=== PATIENT | female | born 1950 | race Caucasian/White ===

== ENCOUNTER 2018-04-21 13:19 | Emergency (ER) | payer MEDICARE ==
[~2018-04-21] VITALS: Ht 170.2 cm; Wt 83.9 kg
--- NOTE | 2018-04-21 13:45 | NUR ---
DR HANKINS AT THE BEDSIDE FOR MSE.
[2018-04-21] MEDS ORDERED: PANT40TA4 PO (13:53)
[2018-04-21] MEDS ORDERED: LISI10TA5 PO (13:53)
[2018-04-21] MEDS ORDERED: HYDR-4077 PO (13:53)
[2018-04-21] MEDS ORDERED: ISOS30TA6 PO (13:53)
[2018-04-21] MEDS ORDERED: ATOR40TA PO (13:53)
[2018-04-21] MEDS ORDERED: AMLO5TAB9 PO (13:53)
[2018-04-21] MEDS ORDERED: LEVO137T2 PO (13:53)
[2018-04-21] MEDS ORDERED: ASPI81TA31 PO (13:53)
[2018-04-21] MEDS ORDERED: CARV6.252 PO (13:53)
[2018-04-21] MEDS ORDERED: CITA20TA16 PO (13:53)
[2018-04-21] MEDS ORDERED: ALBUTEROL SULFATE 2.5 MG/3 ML NEBU ONE (13:57)
[2018-04-21] MEDS ORDERED: ALBUTEROL SULFATE 2.5 MG/3 ML NEBU NEB ONE (14:00)
[2018-04-21 14:01] LABS: BASOPHILS # (AUTO) 0.1 K/uL (0.0-8.0); BASOPHILS % (AUTO) 0.8 % (0.0-2.0); EOSINOPHILS # (AUTO) 0.1 K/uL (0.0-0.7); EOSINOPHILS % (AUTO) 1.4 % (0.0-7.0); HEMATOCRIT 35.2 % (31.2-41.9); HEMOGLOBIN 11.8 g/dL (10.9-14.3); LYMPHOCYTES # (AUTO) 1.1 K/uL (20.0-40.0); LYMPHOCYTES % (AUTO) 14.6 % (20.5-51.5); MEAN CORPUSCULAR HGB CONC 34 g/dL (32.3-35.6); MEAN CORPUSCULAR VOLUME 95.3 fL (75.5-95.3); MONOCYTES # (AUTO) 0.7 K/uL (2.0-10.0); MONOCYTES % (AUTO) 9.1 % (0.0-11.0); NEUTROPHILS # (AUTO) 5.8 K/uL (1.8-8.9); NEUTROPHILS % (AUTO) 74.1 % (38.5-71.5); PLATELET COUNT (AUTO) 223 K/uL (179-408); WHITE BLOOD COUNT (AUTO) 7.8 K/uL (3.8-11.8)
[2018-04-21 14:11] LABS: CREATININE 1.4 mg/dL (0.6-1.3); POTASSIUM 4.7 mmol/L (3.5-5.1)
[2018-04-21 14:28] LABS: BILIRUBIN,DIRECT 0.1 mg/dL (0.0-0.2); BILIRUBIN,TOTAL 0.5 mg/dL (0.2-1.0); TOTAL PROTEIN, SERUM 6.7 g/dL (6.4-8.2)
--- NOTE | 2018-04-21 16:24 | NUR ---
Patient is resting comfortably in bed with eyes closed, NAD noted.
--- NOTE | 2018-04-21 16:55 | NUR ---
GYPSUM CALCINER AT THE BEDSIDE.
[2018-04-21] MEDS ORDERED: AZITHROMYCIN 250 MG TABLET PO ONE (18:00)
[2018-04-21] MEDS ORDERED: BENZONATATE 100 MG CAPSULE PO ONE (18:00)
[2018-04-21] MEDS ORDERED: CEFTRIAXONE 1 G VIAL IM ONE (18:00)
[2018-04-21] MEDS ORDERED: BENZONATATE 100 MG CAPSULE ONE (18:05)
[2018-04-21] MEDS ORDERED: AZITHROMYCIN 250 MG TABLET ONE (18:05)
[2018-04-21] MEDS ORDERED: LIDOCAINE HCL 1% 20 ML VIAL ONE (18:05)
[2018-04-21] MEDS ORDERED: CEFTRIAXONE 1 G VIAL ONE (18:05)
[2018-04-21 18:15] VITALS: BP 139/76
--- NOTE | 2018-04-21 18:16 | NUR ---
Patient discharged to home in stable conditon. Written and verbal after care instructions given. Patient verbalizes understanding of instructions.
== END 2018-04-21 18:17 | disposition home or self-care (01) ==
LOC: ER 13:19
DX: J20.9 Acute bronchitis, unspecified (principal); I25.10 Atherosclerotic heart disease of native coronary artery without angina pectoris; K21.9 Gastro-esophageal reflux disease without esophagitis; E78.5 Hyperlipidemia, unspecified; E03.9 Hypothyroidism, unspecified; Z79.82 Long term (current) use of aspirin; Z79.899 Other long term (current) drug therapy
CPT/HCPCS: 36415; 71045; 80048; 80076; 83880; 84484; 85025; 93005; 93307; 94640; 96372; 99284; J0696; J3490; 70030-TC; A4663; Q0144

== ENCOUNTER 2022-06-28 13:30 | Inpatient (IN) | payer MEDICARE ==
[~2022-06-28] VITALS: Ht 170.2 cm; Wt 69.9 kg
[~2022-06-28 13:30] MED LIST: AMLO-212 PO; ASPI81TA31 PO; ATOR40TA PO; CARV6.252 PO; CITA20TA16 PO; HYDR-4077 PO; ISOS30TA86 PO; LEVO137T2 PO; LISI10TA29 PO; PANT40TA49 PO
--- NOTE | 2022-06-28 14:04 | NUR ---
PT IS IN ROOM #2A. DR SPENCE EVALUATED THE PT.
[2022-06-28 14:06] LABS: HEMATOCRIT 32.7 % (31.2-41.9); MEAN CORPUSCULAR HEMOGLOBIN 34.9 uug (24.7-32.8); MEAN CORPUSCULAR VOLUME 104.4 fL (75.5-95.3); PLATELET COUNT (AUTO) 216 K/uL (179-408)
[2022-06-28] MEDS ORDERED: NITR0.4T48 SL (14:07)
[2022-06-28] MEDS ORDERED: NEPH PO (14:07)
[2022-06-28] MEDS ORDERED: DILT-121 PO (14:07)
[2022-06-28] MEDS ORDERED: PULMOCORT NEB (14:07)
[2022-06-28] MEDS ORDERED: MELA5TAB20 PO (14:07)
[2022-06-28] MEDS ORDERED: APIX5TAB4 PO (14:07)
[2022-06-28] MEDS ORDERED: ALPR0.255 PO (14:07)
[2022-06-28] MEDS ORDERED: POLY17PO52 PO (14:07)
[2022-06-28] MEDS ORDERED: HYDR-4077 PO (14:07)
[2022-06-28 14:19] LABS: CARBON DIOXIDE 33 mmol/L (21-32); CHLORIDE 96 mmol/L (98-107); CREATININE 4.2 mg/dL (0.6-1.3); GLUCOSE 118 mg/dL (74-106); POTASSIUM 4.3 mmol/L (3.5-5.1); UREA NITROGEN, BLOOD 46 mg/dL (7-18)
[2022-06-28 14:32] LABS: ALANINE AMINOTRANSFERASE 29 U/L (14-59); ALKALINE PHOSPHATASE 76 U/L (50-136); ASPARTATE AMINOTRANSFERASE 14 U/L (15-37); BILIRUBIN,DIRECT 0.1 mg/dL (0.0-0.2); BILIRUBIN,TOTAL 0.4 mg/dL (0.2-1.0); TOTAL PROTEIN, SERUM 6.4 g/dL (6.4-8.2)
[2022-06-28] MEDS ORDERED: ASPIRIN 300 MG RECTAL SUPP RC ONE (15:15)
[2022-06-28] MEDS ORDERED: ALBUTEROL SULFATE 2.5 MG/3 ML NEBU NEB ONE (15:15)
[2022-06-28] MEDS ORDERED: IPRATROPIUM BROMIDE 0.5 MG/2.5 ML NEBU NEB ONE (15:15)
[2022-06-28] MEDS ORDERED: MIRALAX 17 GM POWD.PACK PO PRN (16:15)
[2022-06-28] MEDS ORDERED: REMEDY ESSENTIAL ZINC PASTE 113 GM TP PRN (16:30)
[2022-06-28] MEDS ORDERED: ONDANSETRON 4 MG/2 ML VIAL IV PRN (16:30)
[2022-06-28] MEDS ORDERED: ACETAMINOPHEN 325 MG TABLET PO PRN (16:30)
[2022-06-28] MEDS ORDERED: MAGNESIUM HYDROXIDE 30 ML LIQUID UDC PO PRN (16:30)
[2022-06-28] MEDS ORDERED: ISOSORBIDE MONONITRATE 30 MG TAB.SR.24H PO SCH (17:00)
--- NOTE | 2022-06-28 19:05 | NUR ---
REPORT WAS GIVEN TO CCU RN.
[2022-06-28 20:00] VITALS: BP 120/79
[2022-06-28 21:00] VITALS: BP 84/42
[2022-06-28] MEDS: APIXABAN 5 MG TABLET PO SCH (21:00)
[2022-06-28 22:00] VITALS: BP 100/40
[2022-06-28 23:00] VITALS: BP 77/48
[2022-06-28 23:30] VITALS: BP 107/42
[2022-06-29] VITALS (24 sets, daily range): BP systolic 92–150; BP diastolic 41–64
[2022-06-29 05:05] LABS: HEMATOCRIT 25.7 % (31.2-41.9); MEAN CORPUSCULAR HEMOGLOBIN 35.1 uug (24.7-32.8); MEAN CORPUSCULAR VOLUME 102.1 fL (75.5-95.3); PLATELET COUNT (AUTO) 189 K/uL (179-408)
[2022-06-29 05:33] LABS: CARBON DIOXIDE 34 mmol/L (21-32); CHLORIDE 103 mmol/L (98-107); CREATININE 2.4 mg/dL (0.6-1.3); GLUCOSE 88 mg/dL (74-106); MAGNESIUM 2.1 mg/dL (1.8-2.4); POTASSIUM 3.3 mmol/L (3.5-5.1); UREA NITROGEN, BLOOD 21 mg/dL (7-18)
[2022-06-29 05:43] LABS: ABG HCO3 27.9 mmol/L; ABG PCO2 38.7 mmHg (35.0-45.0); ABG PH 7.475 (7.350-7.450); ABG SITE LEFT RADIAL; ABG TOTAL HEMOGLOBIN 9.4 G/dL (12.0-16.0); COHb 0.3 % (0.5-1.5); MetHb 0.3 % (0.0-1.5); O2Hb 96.3 % (94.0-97.0); VENT MODE BIPAP
--- NOTE | 2022-06-29 07:30 | NUR ---
report given to haresh sainz
[2022-06-29] MEDS: LEVOTHYROXINE SODIUM 150 MCG TABLET PO SCH (08:42)
[2022-06-29] MEDS: ASPIRIN 81 MG TAB.CHEW PO SCH (08:57)
[2022-06-29] MEDS: APIXABAN 5 MG TABLET PO SCH (08:58)
[2022-06-29] MEDS: ATORVASTATIN 40 MG TABLET PO SCH (08:59)
[2022-06-29] MEDS ORDERED: CITALOPRAM 20 MG TABLET PO SCH (09:00)
[2022-06-29] MEDS ORDERED: NEPH PO SCH (09:00)
[2022-06-29] MEDS: LISINOPRIL 10 MG TABLET PO SCH (09:00)
[2022-06-29] MEDS ORDERED: DILTIAZEM HCL CD 180 MG CAP.SR.24H PO SCH (09:00)
[2022-06-29] MEDS: CARVEDILOL 25 MG TABLET PO SCH ×2 (09:00→17:32)
[2022-06-29] MEDS: AMLODIPINE 5 MG TABLET PO SCH (09:00)
[2022-06-29] MEDS: PANTOPRAZOLE SODIUM 40 MG TABLET.DR PO SCH (09:04)
[2022-06-29] MEDS ORDERED: ATOR80TA PO (09:26)
[2022-06-29] MEDS ORDERED: CARV25TA2 PO (09:27)
[2022-06-29] MEDS ORDERED: LEVO150T8 PO (09:39)
[2022-06-29] MEDS ORDERED: BUDE0.5A4 IH (09:39)
[2022-06-29] MEDS ORDERED: FOLI0.8T2 GT (09:39)
--- NOTE | 2022-06-29 10:37 | NUR ---
WOUND CARE CONSULT: PT PRESENTS WITH SACRAL DEEP TISSUE INJURY, PRESENT ON ADMISSION. RECOMMENDATIONS MADE FOR SKIN PROTECTION. DISCUSSED WITH NURSING STAFF. IN AGREEMENT WITH PLAN OF CARE. Addendum: 06/29/22 at 1038 by SHONNA JIN RN Amended: Links added.
--- NOTE | 2022-06-29 11:30 | NUR ---
Ame Iasbel saw the patient and I updated her about the patient. I also informed her about the daughter's wish to be called with updates and gave her the phone number. She said that she would call Adelaida "after lunch".
[2022-06-29] MEDS ORDERED: POTASSIUM CHLORIDE 10 MEQ TAB.PRT.SR PO ONE (12:00)
[2022-06-29 12:06] LABS: HEPATITIS B SURFACE AG Negative (Negative)
[2022-06-29] MEDS ORDERED: CARVEDILOL 25 MG TABLET PO SCH (17:00)
[2022-06-29] MEDS: BUDESONIDE 0.5 MG/2 ML NEBU IH SCH (19:19)
[2022-06-29] MEDS: MELATONIN 3 MG TABLET PO SCH (22:16)
[2022-06-30] VITALS (21 sets, daily range): BP systolic 114–165; BP diastolic 44–73
[2022-06-30 05:06] LABS: CARBON DIOXIDE 34 mmol/L (21-32); CHLORIDE 99 mmol/L (98-107); CREATININE 3.6 mg/dL (0.6-1.3); GLUCOSE 85 mg/dL (74-106); POTASSIUM 4.1 mmol/L (3.5-5.1); UREA NITROGEN, BLOOD 35 mg/dL (7-18)
[2022-06-30 05:14] LABS: HEMATOCRIT 24.8 % (31.2-41.9); MEAN CORPUSCULAR HEMOGLOBIN 35.4 uug (24.7-32.8); MEAN CORPUSCULAR VOLUME 104.1 fL (75.5-95.3); PLATELET COUNT (AUTO) 176 K/uL (179-408)
[2022-06-30] MEDS: LEVOTHYROXINE SODIUM 150 MCG TABLET PO SCH (06:15)
[2022-06-30 06:18] LABS: ABG BASE EXCESS 6.3 mmol/L; ABG HCO3 31.7 mmol/L; ABG PH 7.412 (7.350-7.450); ABG PO2 98.9 mmHg (75.0-100.0); ABG SITE RIGHT BRACHIAL; COHb 0.5 % (0.5-1.5); MetHb 0.3 % (0.0-1.5); O2Hb 96.1 % (94.0-97.0); VENT MODE Nasal Cannula
[2022-06-30] MEDS: BUDESONIDE 0.5 MG/2 ML NEBU IH SCH ×2 (06:34→21:05)
--- NOTE | 2022-06-30 07:30 | NUR ---
Dr Sharpe came and saw the patient today
[2022-06-30] MEDS: PANTOPRAZOLE SODIUM 40 MG TABLET.DR PO SCH (08:21)
[2022-06-30] MEDS: CARVEDILOL 25 MG TABLET PO SCH ×2 (08:21→17:36)
[2022-06-30] MEDS: AMLODIPINE 5 MG TABLET PO SCH (08:21)
[2022-06-30] MEDS: FOLIC ACID/VITAMIN B COMP W-C TABLET GT SCH (08:21)
[2022-06-30] MEDS: ASPIRIN 81 MG TAB.CHEW PO SCH (08:22)
[2022-06-30] MEDS: ATORVASTATIN 40 MG TABLET PO SCH (08:22)
[2022-06-30] MEDS: LISINOPRIL 10 MG TABLET PO SCH (08:24)
[2022-06-30] MEDS ORDERED: Medication Not On Formulary EA (Atorvastatin Calcium (Lipitor) 80 MG) PO SCH (09:00)
[2022-06-30] MEDS ORDERED: LEVOTHYROXINE SODIUM 150 MCG TABLET PO SCH (09:00)
--- NOTE | 2022-06-30 09:00 | NUR ---
Dr Willams saw the patient and was update about her status and ABG results, and CT Chest results that he had previously ordered..
[2022-06-30] MEDS: APIXABAN 5 MG TABLET PO SCH ×2 (09:14→20:49)
--- NOTE | 2022-06-30 10:00 | NUR ---
Dr Mcdowell came and saw the patient and I updated him about the status of the patient and he ordered HD for the patient today.
--- NOTE | 2022-06-30 11:00 | NUR ---
Spoke with patients grand daughter Adelaida Cline and she insisted that we discharge the patient before the weekend. I informed her that I would relay her request to the doctors and that it would be up to the doctors to determine if it would be possible to DC the patent.
--- NOTE | 2022-06-30 12:00 | NUR ---
I spoke with Ame Isabel about the grand daughter's request for discharge and she said no that it may happen on Sunday if she remains stable. Patient has been started on HD for the past 15 minutes.
[2022-06-30] MEDS: MELATONIN 3 MG TABLET PO SCH (20:48)
[2022-06-30] MEDS: ALPRAZOLAM 0.25 MG TABLET PO PRN (22:06)
[2022-07-01] VITALS (7 sets, daily range): BP systolic 122–153; BP diastolic 45–67
[2022-07-01 04:34] LABS: HEMATOCRIT 25.1 % (31.2-41.9); MEAN CORPUSCULAR HEMOGLOBIN 35.3 uug (24.7-32.8); MEAN CORPUSCULAR VOLUME 102.8 fL (75.5-95.3); PLATELET COUNT (AUTO) 162 K/uL (179-408)
[2022-07-01 04:42] LABS: CARBON DIOXIDE 33 mmol/L (21-32); CHLORIDE 98 mmol/L (98-107); CREATININE 2.2 mg/dL (0.6-1.3); GLUCOSE 81 mg/dL (74-106); POTASSIUM 4.5 mmol/L (3.5-5.1); UREA NITROGEN, BLOOD 14 mg/dL (7-18)
[2022-07-01 04:46] LABS: MAGNESIUM 2.3 mg/dL (1.8-2.4); PHOSPHOROUS 2.7 mg/dL (2.5-4.9)
[2022-07-01] MEDS: BUDESONIDE 0.5 MG/2 ML NEBU IH SCH ×2 (06:10→20:17)
[2022-07-01 06:18] LABS: ABG BASE EXCESS 3.2 mmol/L; ABG HCO3 28.1 mmol/L; ABG PCO2 44.8 mmHg (35.0-45.0); ABG PH 7.416 (7.350-7.450); ABG PO2 86.4 mmHg (75.0-100.0); ABG SITE RIGHT RADIAL; ABG TOTAL HEMOGLOBIN 8.8 G/dL (12.0-16.0); COHb 0.6 % (0.5-1.5); MetHb 0.3 % (0.0-1.5); VENT MODE Nasal Cannula
[2022-07-01] MEDS: LEVOTHYROXINE SODIUM 150 MCG TABLET PO SCH (06:21)
--- NOTE | 2022-07-01 07:00 | NUR ---
REPORT GIVEN TO LIZ SRAMIENTO
--- NOTE | 2022-07-01 07:20 | NUR ---
Report received from cnc machinist 2nd shift. 3rd floor called and bed is available and receiving nurse will be Theo HILL. Went to 3rd floor to get tele box, brought patient up to the floor and report given at bedside to Theo HILL.
--- NOTE | 2022-07-01 07:30 | NUR ---
RECEIVED PATIENT BY BED 71 YEARS OLD FEMALE FROM CCU TO 314 WITH DX OF NSTEMI PATIENT ORIENTED TO ROOM AND FLOOR PROTOCOL PATIENT IS ON ROOM AIR AT 2L/M BY NASAL CANULA WITH NO SHORTNESS OF BREATH SHE HAS A DIALYSIS CATH RIGHT MID CHEST AREA WITH NO DRAINAGE AT THIS TIME LEFT AC WITH HEPLOCK WITH NO S/S OF INFILTERATION ON SITE TELE IS SB/SR MADE COMFORTABLE WILL CONTINUE TO OBSERVE.
[2022-07-01] MEDS: ASPIRIN 81 MG TAB.CHEW PO SCH (09:16)
[2022-07-01] MEDS: ATORVASTATIN 40 MG TABLET PO SCH (09:16)
[2022-07-01] MEDS: FOLIC ACID/VITAMIN B COMP W-C TABLET GT SCH (09:16)
[2022-07-01] MEDS: PANTOPRAZOLE SODIUM 40 MG TABLET.DR PO SCH (09:16)
[2022-07-01] MEDS: LISINOPRIL 10 MG TABLET PO SCH (09:17)
[2022-07-01] MEDS: AMLODIPINE 5 MG TABLET PO SCH (09:17)
[2022-07-01] MEDS: CARVEDILOL 25 MG TABLET PO SCH ×2 (09:17→16:40)
[2022-07-01] MEDS: APIXABAN 5 MG TABLET PO SCH ×2 (09:19→20:18)
--- NOTE | 2022-07-01 13:00 | NUR ---
PATIENT SEEN AND EXAMINED BY RUI LORA NP AND SHE STATED THAT SHE ATTEMPTED TO CALL PATIENTS DAUGHTER TO TALK TO HER REPLAN OF CARE BUT STATED PATIENTS DAUGHTER DID NOT BALLPOINT PENS ASSEMBLER THE CA.. NO NEW ORDERS AT THIS TIME.
--- NOTE | 2022-07-01 17:38 | NUR ---
TURNED AND REPOSITIONED FOR COMFORT HEELS FLOATED ASSISTED WITH MEALS PATIENT IS A FEEDER APPETITE IS GOOD NOT IN DISTRESS AT THIS TIME.
[2022-07-01] MEDS: MELATONIN 3 MG TABLET PO SCH (20:17)
--- NOTE | 2022-07-02 05:30 | NUR ---
END OF SHIFT REPORT PAtient slept all throughout the night; incontinence care done; care rounding q1h; safety maintained; bed alarm on; repositioned for comfort; needs attended
[2022-07-02 05:41] LABS: HEMATOCRIT 26.4 % (31.2-41.9); MEAN CORPUSCULAR HEMOGLOBIN 35.1 uug (24.7-32.8); MEAN CORPUSCULAR VOLUME 103.6 fL (75.5-95.3); PLATELET COUNT (AUTO) 177 K/uL (179-408)
[2022-07-02] MEDS: PANTOPRAZOLE SODIUM 40 MG TABLET.DR PO SCH (05:43)
[2022-07-02] MEDS: LEVOTHYROXINE SODIUM 150 MCG TABLET PO SCH (05:43)
[2022-07-02 05:49] LABS: CARBON DIOXIDE 30 mmol/L (21-32); CHLORIDE 95 mmol/L (98-107); GLUCOSE 85 mg/dL (74-106); POTASSIUM 5.1 mmol/L (3.5-5.1); UREA NITROGEN, BLOOD 26 mg/dL (7-18)
[2022-07-02] MEDS: BUDESONIDE 0.5 MG/2 ML NEBU IH SCH ×2 (06:23→20:54)
[2022-07-02] MEDS: FOLIC ACID/VITAMIN B COMP W-C TABLET GT SCH (08:41)
[2022-07-02] MEDS: ASPIRIN 81 MG TAB.CHEW PO SCH (08:41)
[2022-07-02] MEDS: ATORVASTATIN 40 MG TABLET PO SCH (08:42)
[2022-07-02] MEDS: CARVEDILOL 25 MG TABLET PO SCH ×2 (08:47→16:09)
[2022-07-02] MEDS: LISINOPRIL 10 MG TABLET PO SCH (08:47)
[2022-07-02] MEDS: AMLODIPINE 5 MG TABLET PO SCH (08:47)
[2022-07-02] MEDS: APIXABAN 5 MG TABLET PO SCH ×2 (09:14→20:34)
--- NOTE | 2022-07-02 11:48 | NUR ---
CALL RECEIVED ROM PATIENT STATED NEEDS MORE AIR SHE IS ON O2 AT 1L/M BY NASAL CANULA CHECKED HER SATURATION AND ITS AT 87 PERCENT HER O2 INCREASED TO 2L/M AND RECHECKED AND NOW ITS AT 89 PERCENT INCREASED AGAIN TO 3L/M BY NASAL CANULA AND ITS AT 92-93 PERCENT SPEEDY LORA HERE AT THE BEDSIDE AND STATED THAT PATIENT IS ON O2 AT [place] STATED WILL OBSERVE FUTHER TO SEE IF PATIENT CAN BE SAFELY DISCHARGED TODAY WILL CONTINUE TO OBSERVE.
[2022-07-02 12:00] VITALS: BP 149/58
--- NOTE | 2022-07-02 12:00 | NUR ---
CALLED RESPIRATORY THERAPY TO EVALUATE PATIENT TO ENSURE ADEQUATE BREATHING AND THE RT PLACED PATIENT ON BIPAP SHE HAS PRN ORDER AND IS BETTER FOR HER.
--- NOTE | 2022-07-02 12:13 | NUR ---
RUI HERE AND STATED TO ORDER HAND HELD NEBULIZERS FOR HER AND NOTED.
[2022-07-02] MEDS: ALBUTEROL SULFATE 2.5 MG/3 ML NEBU NEB SCH ×2 (12:20→20:54)
[2022-07-02] MEDS: IPRATROPIUM BROMIDE 0.5 MG/2.5 ML NEBU NEB SCH ×2 (12:20→20:54)
[2022-07-02] MEDS: NEPRO (VANILLA) 237 ML CAN PO SCH (12:45)
--- NOTE | 2022-07-02 14:30 | NUR ---
THE [facility] HERE TO DO CHEST XRAY ORDERED BUT PATIENT REFUSED AT THIS TIME ATTEMPTS TO PERSUADE PATIENT TO HAVE THE XRAY DONE ORDERED BY HER PROVIDER FAILED.WILL NOTIFY RUI LORA.
--- NOTE | 2022-07-02 15:12 | NUR ---
PATIENT IS CURRENTLY USING THE BIPAP STATED SHE FEELS MORE COMFORTABLE WITH THE BIPAP HER SAT IS AT 98 PERCENT WILL CONTINUE TO OBSERVE.
--- NOTE | 2022-07-02 15:31 | NUR ---
CALL RECEIVED FROM PATIENTS GRAND DAUGHTER CARLOS ALBERTO WANTING UPDATE GAVE HER ALL THE DETAILS INCLUDING THAT PATIENT IS CURRENTLY ON BIPAP TO MAINTAIN SATS SHE HAS REFUSED CHEST XRAY ORDERED HHN GIVEN ORDERED CARLOS ALBERTO STATED THAT SHE WANTS RUI LORA TO CALL HER SO I CALL RUI AND LEFT HER A MESSAGE TO REACH OUT TO CARLOS ALBERTO.
[2022-07-02 16:00] VITALS: BP 119/52
--- NOTE | 2022-07-02 17:45 | NUR ---
PATIENT IS REFUSING TO EAT DOES NOT WANT HER BIPAP REMOVED IN OTHER TO FEED HER SO I FINALLY CONVINCED PATIENT TO TEMPORARILY REMOVE THE BIPAP AND EAT AND WE CAN THEN PUT IT BACK SHE AGREED AND THE BIPAP WAS REMOVED AND SHE ONLY ATE 20 PERCENT DRANK HIS JUICE AND IMMEDIATELY WANTS HER BIPAP PUT BACK ON HER.HYDRO PNEUMATIC TESTER CALLED AND THE BIPAP WAS PLACED BACK.
[2022-07-02 20:00] VITALS: BP 122/59
[2022-07-02] MEDS: MELATONIN 3 MG TABLET PO SCH (20:32)
[2022-07-03] VITALS: BP 128/71
[2022-07-03 04:00] VITALS: BP 146/61
[2022-07-03] MEDS: LEVOTHYROXINE SODIUM 150 MCG TABLET PO SCH (06:00)
[2022-07-03 06:53] LABS: MEAN CORPUSCULAR HEMOGLOBIN 35.1 uug (24.7-32.8); MEAN CORPUSCULAR VOLUME 103.2 fL (75.5-95.3); PLATELET COUNT (AUTO) 173 K/uL (179-408)
[2022-07-03 07:01] LABS: CARBON DIOXIDE 31 mmol/L (21-32); CHLORIDE 95 mmol/L (98-107); CREATININE 3.9 mg/dL (0.6-1.3); GLUCOSE 79 mg/dL (74-106); POTASSIUM 5.4 mmol/L (3.5-5.1); UREA NITROGEN, BLOOD 37 mg/dL (7-18)
--- NOTE | 2022-07-03 07:30 | NUR ---
RECEIVED PATIENT IN BED WITH HER BIPAP IN PLACE WITH ADEQUATE SATS ALERT AND ORIENTED BUT FORGETFUL PATIENT CONTINUE TO REFUSE TO REMOVE THE BIPAP WANT TO CONTINUE TO WEAR .ON TELE SHE IS SR CALL LIGHT AND PERSONAL BELONGINGS ARE WITHIN EASY REACH AT THIS TIME WILL CONTINUE TO OBSERVE.
[2022-07-03] MEDS: IPRATROPIUM BROMIDE 0.5 MG/2.5 ML NEBU NEB SCH ×3 (07:42→19:09)
[2022-07-03] MEDS: ALBUTEROL SULFATE 2.5 MG/3 ML NEBU NEB SCH ×3 (07:42→19:09)
[2022-07-03] MEDS: BUDESONIDE 0.5 MG/2 ML NEBU IH SCH ×2 (07:42→19:09)
[2022-07-03] MEDS: PANTOPRAZOLE SODIUM 40 MG TABLET.DR PO SCH (08:44)
[2022-07-03] MEDS: FOLIC ACID/VITAMIN B COMP W-C TABLET GT SCH (08:44)
[2022-07-03] MEDS: ASPIRIN 81 MG TAB.CHEW PO SCH (08:45)
[2022-07-03] MEDS: LISINOPRIL 10 MG TABLET PO SCH (08:45)
[2022-07-03] MEDS: ATORVASTATIN 40 MG TABLET PO SCH (08:45)
[2022-07-03] MEDS: AMLODIPINE 5 MG TABLET PO SCH (08:46)
[2022-07-03] MEDS: CARVEDILOL 25 MG TABLET PO SCH ×2 (08:46→16:52)
[2022-07-03] MEDS: APIXABAN 5 MG TABLET PO SCH ×2 (08:49→21:27)
[2022-07-03] MEDS: NEPRO (VANILLA) 237 ML CAN PO SCH (09:00)
--- NOTE | 2022-07-03 09:17 | NUR ---
PATIENT SEEN AND EXAMINED BY DR PETERSON WITH NEW ORDERS AND NOTED.BIPAP REMOVED BY RT WITH MUCH DIFFICULTY PATIENT IS RESISTING DOES NOT WANT IT REMOVED SHE SAID THAT SHE CANNOT BREATH WITHOUT THE BIPAP ATTEMPTING TO FEED HER AND WILL REEVALUATE
--- NOTE | 2022-07-03 09:30 | NUR ---
DR KELLY HERE AND SEEN PATIENT WITH ORDER FOR DIALYSIS TODAY AND NOTED.
--- NOTE | 2022-07-03 11:22 | NUR ---
PATIENT SEEN BY RUI LORA WITH NEW ORDERS SHE IS STILL COMPLAINING THAT SHE CANNOT BREATH ON THE NASAL CANULA WITH SAT AT 93 PERCENT RESPIRATORY AWARE TO REAPPLY THE BIPAP.ABG AND CXR COMPLETED ORDERED.
[2022-07-03 12:00] VITALS: BP 141/60
--- NOTE | 2022-07-03 13:00 | NUR ---
pt is for psych consult per Maryjo Isabel (hospitalist) Dr Delong informed of the consult
--- NOTE | 2022-07-03 13:22 | NUR ---
PATIENTS DAUGHTER CARLOS ALBERTO HERE AND STATED THAT SHE WANTS HER MOM TO BE DISCHARGED TODAY SHE IS AWARE OF THE DIALYSIS SCHEDULE TODAY AND STATED THAT IF AFTER THE DIALYSIS AND RUI IS NOT DISCHARGING THE PATIENT TODAY THEN SHE WILL SIGN THE AGAINST MEDICAL ADVISE FORM AND TAKE OUT THE PATIENT AWAITING FOR THE DIALYSIS NURSE TO COME FOR THE DIALYSIS ORDERED.
[2022-07-03 14:00] LABS: ABG BASE EXCESS 3.7 mmol/L; ABG HCO3 29.1 mmol/L; ABG PCO2 47.9 mmHg (35.0-45.0); ABG PH 7.401 (7.350-7.450); ABG PO2 93.6 mmHg (75.0-100.0); ABG SITE RIGHT BRACHIAL; ABG TOTAL HEMOGLOBIN 9.6 G/dL (12.0-16.0); COHb 0.3 % (0.5-1.5); MetHb 0.3 % (0.0-1.5); O2Hb 96.2 % (94.0-97.0); VENT MODE Nasal Cannula
--- NOTE | 2022-07-03 15:00 | NUR ---
DR SELBYIAN HERE TO SEE PATIENT WITH NO NEW ORDERS AT THIS TIME.
[2022-07-03 16:00] VITALS: BP 152/60
--- NOTE | 2022-07-03 16:50 | NUR ---
DIALYSIS STATED ORDERED PATIENT IS AWAKE ALERT COOPERATIVE WITH O2 AT 5L/M BY NASAL CANULA WITH NO SOB AT THIS TIME SHE WAS ASKING FOR BIPAP FEW MINUTES AGO BUT I REMINDED HER THAT SHE IS OKAY WITH THE NASAL JUSTIN AT THIS TIME.
--- NOTE | 2022-07-03 18:00 | NUR ---
DIALYSIS CONTINUES IN PROGRESS ORDERED WITH NO ADVERSE REACTIONS REPORTED AT THIS TIME .
[2022-07-03 20:00] VITALS: BP 170/61
[2022-07-03] MEDS: MELATONIN 3 MG TABLET PO SCH (21:25)
[2022-07-03 22:00] VITALS: BP 142/59
[2022-07-04] VITALS: BP 153/92
[2022-07-04 04:00] VITALS: BP 179/72
[2022-07-04 05:20] LABS: ABG BASE EXCESS 6.1 mmol/L; ABG PCO2 47.4 mmHg (35.0-45.0); ABG PH 7.434 (7.350-7.450); ABG PO2 56.8 mmHg (75.0-100.0); ABG SITE RIGHT BRACHIAL; COHb 0.6 % (0.5-1.5); MetHb 0.3 % (0.0-1.5); O2Hb 89.4 % (94.0-97.0); VENT MODE Nasal Cannula
[2022-07-04] MEDS: hydrALAZINE HCL 50 MG TABLET PO PRN (06:00)
[2022-07-04 07:04] LABS: HEMATOCRIT 26.3 % (31.2-41.9); MEAN CORPUSCULAR HEMOGLOBIN 35.3 uug (24.7-32.8); MEAN CORPUSCULAR VOLUME 102.4 fL (75.5-95.3); PLATELET COUNT (AUTO) 192 K/uL (179-408)
--- NOTE | 2022-07-04 07:15 | NUR ---
END OF SHIFT REPORT Pt tolerated HD last night with 2000 ml out; slept well and now on 4L NC; BP this AM sbp 170s and hydralazine given; endorsed to AM RN; continue to monitor; continue plan of care
[2022-07-04 07:32] LABS: CARBON DIOXIDE 32 mmol/L (21-32); CHLORIDE 97 mmol/L (98-107); CREATININE 2.5 mg/dL (0.6-1.3); GLUCOSE 88 mg/dL (74-106); POTASSIUM 4.2 mmol/L (3.5-5.1); UREA NITROGEN, BLOOD 21 mg/dL (7-18)
[2022-07-04] MEDS: LEVOTHYROXINE SODIUM 150 MCG TABLET PO SCH (07:32)
[2022-07-04] MEDS: BUDESONIDE 0.5 MG/2 ML NEBU IH SCH ×2 (08:00→19:39)
[2022-07-04] MEDS: IPRATROPIUM BROMIDE 0.5 MG/2.5 ML NEBU NEB SCH ×3 (08:00→19:39)
[2022-07-04] MEDS: ALBUTEROL SULFATE 2.5 MG/3 ML NEBU NEB SCH ×3 (08:00→19:39)
[2022-07-04] MEDS: ATORVASTATIN 40 MG TABLET PO SCH (08:59)
[2022-07-04] MEDS: NEPRO (VANILLA) 237 ML CAN PO SCH (08:59)
[2022-07-04] MEDS: FOLIC ACID/VITAMIN B COMP W-C TABLET GT SCH (08:59)
[2022-07-04] MEDS: ASPIRIN 81 MG TAB.CHEW PO SCH (09:00)
[2022-07-04] MEDS: PANTOPRAZOLE SODIUM 40 MG TABLET.DR PO SCH (09:00)
[2022-07-04] MEDS: LISINOPRIL 10 MG TABLET PO SCH (09:01)
[2022-07-04] MEDS: CARVEDILOL 25 MG TABLET PO SCH ×2 (09:01→17:44)
[2022-07-04] MEDS: AMLODIPINE 5 MG TABLET PO SCH (09:02)
[2022-07-04] MEDS: APIXABAN 5 MG TABLET PO SCH ×2 (09:05→22:39)
[2022-07-04] MEDS: ALPRAZOLAM 0.25 MG TABLET PO PRN (10:01)
--- NOTE | 2022-07-04 10:01 | NUR ---
PATIENT IS VERY ANXIOUS AT THIS TIME STILL ASKING FOR THE BIPAP MACHINE STATED THAT SHE CANNOT BREATH HER SATS IS ADEQUATE WITH THE NASAL CANULA AT 4L/M PATIENT MEDICATED WITH XANAX AT THIS TIME REASSURED AND WILL CONTINUE TO OBSERVE.
[2022-07-04 10:13] LABS: MAGNESIUM 2.5 mg/dL (1.8-2.4); PHOSPHOROUS 3.1 mg/dL (2.5-4.9)
--- NOTE | 2022-07-04 10:19 | NUR ---
PSYCHIATRIST LOS HERE AND SEEN PATIENT TO EVALUATE PATIENTS BEHAVIOR WITH WANTING TO HAVE THE BIPAP ON ALL THE TIME EVEN THOUGH HER BLOOD GASSES HAS BEEN NORMAL AND SHE IS ON O2 AT 4L/M BY NASAL CANNULA WITH SATS AT 93-94 PERCENT
--- NOTE | 2022-07-04 11:49 | NUR ---
NEW ORDER NOTED FOR THORACENTESIS BY DR GLENYS ASH AND SHE ALSO CALLED PATIENTS GRAND DAUGHTER CARLOS ALBERTO AND NOTIFIED HER RE PLAN OF CARE.
[2022-07-04 12:00] VITALS: BP 158/60
--- NOTE | 2022-07-04 13:00 | NUR ---
PATIENT CONTINUES TO REQUEST FOR THE BIPAP STATED UNABLE TO BREATH VERY ANXIOUS AND CALLING OUT FOR HELP O2 SAT AT 91-92 PERCENT RESPIRATORY THERAPIST CALLED AND PATIENT PLACED ON BIPAP SHE IS NOW MORE RELAXED AND RESTING WILL CONTINUE TO OBSERVE.
[2022-07-04 16:00] VITALS: BP 137/46
--- NOTE | 2022-07-04 18:00 | NUR ---
USING BIPAP ON AND OFF MORE ON THAN OFF STARTS TO GET UPSET AND AGITATED ASKING FOR THE BIPAP STATED UNABLE TO BREATH APPLIED REMOVED AND REAPPLIED MANY TIMES WILL CONTINUE TO OBSERVE.
--- NOTE | 2022-07-04 19:40 | NUR ---
received patient in bed hob elevate, patient on Bipap as per requested, seen by RT. patient has no complain of pain, kept clean dry and comfortable. patient cooperative with care, cont to monitor.
[2022-07-04 20:00] VITALS: BP 155/65
[2022-07-04] MEDS: MELATONIN 3 MG TABLET PO SCH (22:33)
[2022-07-05] VITALS (7 sets, daily range): BP systolic 107–168; BP diastolic 51–66
[2022-07-05] MEDS: hydrALAZINE HCL 50 MG TABLET PO PRN (00:57)
[2022-07-05] MEDS: LEVOTHYROXINE SODIUM 150 MCG TABLET PO SCH (06:08)
--- NOTE | 2022-07-05 06:20 | NUR ---
Patient awake no sob no chest pain, right chest perma cath dressing intact, no complain of pain, patient still voids, prefer to continue to have bipap. cont to monitor.
[2022-07-05 06:44] LABS: HEMATOCRIT 26.3 % (31.2-41.9); MEAN CORPUSCULAR HEMOGLOBIN 35.1 uug (24.7-32.8); MEAN CORPUSCULAR VOLUME 103.5 fL (75.5-95.3); PLATELET COUNT (AUTO) 198 K/uL (179-408)
[2022-07-05 07:18] LABS: CARBON DIOXIDE 32 mmol/L (21-32); CHLORIDE 98 mmol/L (98-107); CREATININE 3.1 mg/dL (0.6-1.3); GLUCOSE 84 mg/dL (74-106); POTASSIUM 4.1 mmol/L (3.5-5.1); UREA NITROGEN, BLOOD 26 mg/dL (7-18)
[2022-07-05] MEDS: IPRATROPIUM BROMIDE 0.5 MG/2.5 ML NEBU NEB SCH ×3 (07:42→20:29)
[2022-07-05] MEDS: BUDESONIDE 0.5 MG/2 ML NEBU IH SCH ×2 (07:42→20:29)
[2022-07-05] MEDS: ALBUTEROL SULFATE 2.5 MG/3 ML NEBU NEB SCH ×3 (07:42→20:29)
[2022-07-05 08:25] LABS: MAGNESIUM 2.6 mg/dL (1.8-2.4); PHOSPHOROUS 3.5 mg/dL (2.5-4.9)
[2022-07-05] MEDS: ASPIRIN 81 MG TAB.CHEW PO SCH (09:08)
[2022-07-05] MEDS: CARVEDILOL 25 MG TABLET PO SCH ×2 (09:08→17:00)
[2022-07-05] MEDS: FOLIC ACID/VITAMIN B COMP W-C TABLET GT SCH (09:08)
[2022-07-05] MEDS: PANTOPRAZOLE SODIUM 40 MG TABLET.DR PO SCH (09:08)
[2022-07-05] MEDS: LISINOPRIL 10 MG TABLET PO SCH (09:08)
[2022-07-05] MEDS: AMLODIPINE 5 MG TABLET PO SCH (09:08)
[2022-07-05] MEDS: ATORVASTATIN 40 MG TABLET PO SCH (09:08)
[2022-07-05] MEDS: APIXABAN 5 MG TABLET PO SCH ×2 (09:09→20:23)
[2022-07-05] MEDS: NEPRO (VANILLA) 237 ML CAN PO SCH (09:10)
--- NOTE | 2022-07-05 14:20 | NUR ---
Hemodialysis started. pt alert and oriented. no sign of distress. on 3L NC saturating 96-98%.
--- NOTE | 2022-07-05 15:00 | NUR ---
s/p hemodialysis. 2L out. pt tolerated the procedure. no complication noted. made aware.
--- NOTE | 2022-07-05 15:10 | NUR ---
pt c/o SOB. pt requested to be put on BiPap. RT notified. Addendum: 07/05/22 at 1605 by ASHLEY PAINTER RN pt on Bipap again. made aware.
--- NOTE | 2022-07-05 19:30 | NUR ---
Received patient lying in bed. BIPAP in place. In no apparent distress. NSR on tele with HR of 64/min. Perma cath on right upper chest area intact with dressing clean and dry. Needs assessed and attended to. Safety measure initiated and call light within reached.
[2022-07-05] MEDS: MELATONIN 3 MG TABLET PO SCH (20:23)
--- NOTE | 2022-07-05 20:39 | NUR ---
REQUEST OF PATIENT, 20:35- TO TAKE OFF BI/PAP, PT PLACED ON O2 @ 3L/M NC, BI/PAP PRN , BG GRIER RCP Addendum: 07/05/22 at 204 by ATILIO GRIER RT Amended: Links added.
[2022-07-06 00:19] VITALS: BP 127/69
[2022-07-06 04:32] VITALS: BP 121/53
--- NOTE | 2022-07-06 04:56 | NUR ---
Noted patient pulled out IV on left AC. Placed new IV on right FA #[id number].
--- NOTE | 2022-07-06 05:29 | NUR ---
BIPAP used during the night. No complain of pain or SOB. NSR on tele with HR of 66/min. IV site on right FA remains intact and patent. Needs attended to and met. Safety measure initiated and call light within reached.
[2022-07-06] MEDS: LEVOTHYROXINE SODIUM 150 MCG TABLET PO SCH (06:02)
[2022-07-06 06:18] LABS: ABG BASE EXCESS 2.6 mmol/L; ABG HCO3 26.8 mmol/L; ABG PCO2 39.8 mmHg (35.0-45.0); ABG PH 7.446 (7.350-7.450); ABG PO2 77.8 mmHg (75.0-100.0); ABG SITE RIGHT RADIAL; ABG TOTAL HEMOGLOBIN 8.8 G/dL (12.0-16.0); COHb 0.4 % (0.5-1.5); MetHb 0.3 % (0.0-1.5); O2Hb 94.5 % (94.0-97.0); VENT MODE Nasal Cannula
[2022-07-06 07:07] LABS: HEMATOCRIT 25.2 % (31.2-41.9); MEAN CORPUSCULAR VOLUME 103.9 fL (75.5-95.3); PLATELET COUNT (AUTO) 222 K/uL (179-408)
[2022-07-06 07:35] LABS: CARBON DIOXIDE 33 mmol/L (21-32); CHLORIDE 99 mmol/L (98-107); CREATININE 2.7 mg/dL (0.6-1.3); GLUCOSE 100 mg/dL (74-106); MAGNESIUM 2.2 mg/dL (1.8-2.4); PHOSPHOROUS 2.9 mg/dL (2.5-4.9); POTASSIUM 3.6 mmol/L (3.5-5.1); UREA NITROGEN, BLOOD 21 mg/dL (7-18)
[2022-07-06] MEDS: BUDESONIDE 0.5 MG/2 ML NEBU IH SCH (07:45)
[2022-07-06] MEDS: IPRATROPIUM BROMIDE 0.5 MG/2.5 ML NEBU NEB SCH ×2 (07:46→13:40)
[2022-07-06] MEDS: ALBUTEROL SULFATE 2.5 MG/3 ML NEBU NEB SCH ×2 (07:46→13:40)
[2022-07-06] MEDS: ATORVASTATIN 40 MG TABLET PO SCH (08:25)
[2022-07-06] MEDS: ASPIRIN 81 MG TAB.CHEW PO SCH (08:25)
[2022-07-06] MEDS: PANTOPRAZOLE SODIUM 40 MG TABLET.DR PO SCH (08:25)
[2022-07-06] MEDS: APIXABAN 5 MG TABLET PO SCH (08:26)
[2022-07-06] MEDS: FOLIC ACID/VITAMIN B COMP W-C TABLET GT SCH (08:27)
[2022-07-06] MEDS: AMLODIPINE 5 MG TABLET PO SCH (08:36)
[2022-07-06] MEDS: CARVEDILOL 25 MG TABLET PO SCH (08:36)
[2022-07-06] MEDS: NEPRO (VANILLA) 237 ML CAN PO SCH (08:37)
[2022-07-06] MEDS: LISINOPRIL 10 MG TABLET PO SCH (08:37)
[2022-07-06] MEDS ORDERED: AMLO-212 PO (10:02)
[2022-07-06] MEDS ORDERED: LISI10TA29 PO (10:02)
[2022-07-06 11:40] VITALS: BP 111/43
[2022-07-06 15:43] VITALS: BP 93/51
--- NOTE | 2022-07-06 16:31 | NUR ---
Pt. discharged to [facility]. Pt. has been stable through out the shift and upon the discharge. Body check done and picture included in pt. chart. Personal belongig returned to the patient. All necessary document signed and a copy was given to the patient. IV line removed. Called [facility] and report given to Vu.
== END 2022-07-06 16:35 | disposition home health service (06) | DRG 280 ==
LOC: ER 13:30 → TRANSITION 18:57 → CCU 19:30 → MEDSURG3 07-01 07:51 → TELE3 07-01 07:53
PROVIDERS: ADMIT Nurse Practitioner Acute Care; ATTEND Nurse Practitioner Acute Care
PROC: 5A09357 Assistance with Respiratory Ventilation, Less than 24 Consecutive Hours, Continuous Positive Airway Pressure (ICD-10-PCS; principal; 2022-06-28)
PROC: 5A1D70Z Performance of Urinary Filtration, Intermittent, Less than 6 Hours Per Day (ICD-10-PCS; 2022-06-29)
DX: I13.2 Hypertensive heart and chronic kidney disease with heart failure and with stage 5 chronic kidney disease, or end stage renal disease (principal); I21.A1 Myocardial infarction type 2; I50.33 Acute on chronic diastolic (congestive) heart failure; N18.6 End stage renal disease; J96.21 Acute and chronic respiratory failure with hypoxia; J96.22 Acute and chronic respiratory failure with hypercapnia; I69.354 Hemiplegia and hemiparesis following cerebral infarction affecting left non-dominant side; E44.0 Moderate protein-calorie malnutrition; D68.59 Other primary thrombophilia; K21.9 Gastro-esophageal reflux disease without esophagitis; D63.1 Anemia in chronic kidney disease; Z74.01 Bed confinement status; F41.9 Anxiety disorder, unspecified; I48.0 Paroxysmal atrial fibrillation; Z99.81 Dependence on supplemental oxygen; E03.9 Hypothyroidism, unspecified; E78.5 Hyperlipidemia, unspecified; I27.20 Pulmonary hypertension, unspecified; Z79.82 Long term (current) use of aspirin; Z79.899 Other long term (current) drug therapy; Z79.01 Long term (current) use of anticoagulants; Z95.5 Presence of coronary angioplasty implant and graft; Z99.2 Dependence on renal dialysis; I25.10 Atherosclerotic heart disease of native coronary artery without angina pectoris; E88.09 Other disorders of plasma-protein metabolism, not elsewhere classified; Z86.59 Personal history of other mental and behavioral disorders; Z20.822 Contact with and (suspected) exposure to COVID-19
CPT/HCPCS: 36415; 36600; 70450; 71045; 71250; 82803; 83605; 83735; 84100; 84484; 85025; 85730; 86706; 87040; 87340; 90937; 93005; 93307; 93880; 94640; 94660; 94760; A4663; A6213; G0378; J3590; J7040

== ENCOUNTER 2022-08-11 14:56 | Inpatient (IN) | payer MEDICARE, OTHER ==
[~2022-08-11] VITALS: Ht 157.5 cm; Wt 71.7 kg
[~2022-08-11 14:56] MED LIST changes: +APIX5TAB4 PO; -ATOR40TA PO; +ATOR80TA PO; +BUDE0.5A4 IH; +CARV25TA2 PO; -CARV6.252 PO; -CITA20TA16 PO; +FOLI0.8T2 GT; -ISOS30TA86 PO; -LEVO137T2 PO; +LEVO150T8 PO; +MELA5TAB20 PO; +NITR0.4T48 SL; +POLY17PO52 PO
--- NOTE | 2022-08-11 15:05 | NUR ---
PT PLACED ON BIPAP PER DR. QUINN ORDER. SPO2 AND RESPIRATIONS WNL. ADEQUATE VOLUMES OBSERVED, NO RESP. DISTRESS NOTED. SKIN INTACT, PROTECTA-GEL APPLIED UNDER MASK FOR SKIN INTEGRITY. WILL CONTINUE TO MONITOR PT.
[2022-08-11] MEDS ORDERED: AMLO10TA59 PO (15:19)
[2022-08-11] MEDS ORDERED: FAMO20TA8 PO (15:19)
[2022-08-11] MEDS ORDERED: LOSA50TA39 PO (15:19)
[2022-08-11] MEDS ORDERED: SENN8.6T19 PO (15:19)
[2022-08-11] MEDS ORDERED: ESCI10TA PO (15:19)
[2022-08-11] MEDS ORDERED: FOLI0.8T2 PO (15:19)
[2022-08-11] MEDS ORDERED: HYDR-894 PO (15:19)
[2022-08-11] MEDS ORDERED: ROSU10TA29 PO (15:19)
[2022-08-11] MEDS ORDERED: HYDR-4075 PO (15:19)
[2022-08-11] MEDS ORDERED: AMIO200T5 PO (15:19)
[2022-08-11] MEDS ORDERED: MIDO10TA PO (15:19)
[2022-08-11] MEDS ORDERED: MELA3CAP2 PO (15:19)
--- NOTE | 2022-08-11 15:32 | NUR ---
PT IS IN ROOM #1B. DR QUINN EVALUATED THE PT.
[2022-08-11 16:04] LABS: CARBON DIOXIDE 27 mmol/L (21-32); CHLORIDE 90 mmol/L (98-107); CREATININE 4.5 mg/dL (0.6-1.3); GLUCOSE 128 mg/dL (74-106); POTASSIUM 4.8 mmol/L (3.5-5.1); UREA NITROGEN, BLOOD 30 mg/dL (7-18)
[2022-08-11 16:17] LABS: HEMATOCRIT 40.2 % (31.2-41.9); MEAN CORPUSCULAR HEMOGLOBIN 34.2 uug (24.7-32.8); MEAN CORPUSCULAR VOLUME 103.4 fL (75.5-95.3); PLATELET COUNT (AUTO) 244 K/uL (179-408)
[2022-08-11 16:20] LABS: ALANINE AMINOTRANSFERASE 36 U/L (14-59); ALKALINE PHOSPHATASE 85 U/L (50-136); ASPARTATE AMINOTRANSFERASE 19 U/L (15-37); BILIRUBIN,DIRECT 0.2 mg/dL (0.0-0.2); BILIRUBIN,TOTAL 0.6 mg/dL (0.2-1.0); TOTAL PROTEIN, SERUM 6.9 g/dL (6.4-8.2)
[2022-08-11 17:26] LABS: ABG BASE EXCESS -0.8 mmol/L; ABG HCO3 24.1 mmol/L; ABG PCO2 40.7 mmHg (35.0-45.0); ABG PO2 72.2 mmHg (75.0-100.0); ABG SITE RIGHT RADIAL; ABG TOTAL HEMOGLOBIN 13.1 G/dL (12.0-16.0); COHb 1.2 % (0.5-1.5); MetHb 0.2 % (0.0-1.5); VENT MODE BIPAP
[2022-08-11] MEDS ORDERED: ONDANSETRON 4 MG/2 ML VIAL IV PRN (17:30)
[2022-08-11] MEDS ORDERED: REMEDY ESSENTIAL ZINC PASTE 113 GM TP PRN (17:30)
[2022-08-11] MEDS ORDERED: IPRATROPIUM BROMIDE 0.5 MG/2.5 ML NEBU NEB PRN (17:30)
[2022-08-11] MEDS ORDERED: ALBUTEROL SULFATE 2.5 MG/3 ML NEBU NEB PRN (17:30)
[2022-08-11 19:00] VITALS: BP 114/50; O2SAT 98
[2022-08-11 20:00] VITALS: BP 118/44; TEMP 97.7; O2SAT 95
[2022-08-11 21:00] VITALS: BP 109/67; O2SAT 96
[2022-08-11 22:00] VITALS: BP 110/51; O2SAT 97
--- NOTE | 2022-08-11 22:36 | NUR ---
Dr. Carr speaking with Darian Otero NP.
[2022-08-11 23:00] VITALS: BP 114/55; O2SAT 97
[2022-08-12] VITALS (25 sets, daily range): BP systolic 92–146; BP diastolic 34–72; TEMP 97.7–98.8; O2SAT 86–98
--- NOTE | 2022-08-12 02:45 | NUR ---
HD X2hrs minus 1L.
--- NOTE | 2022-08-12 04:03 | NUR ---
PATIENT ON CONT BI/PAP WITH MEDIUM MASK, AND PROTECTIVE GEL UNDER MASK, . SETTINGS, 11/08, RR20. TITRATE FIO2 60%, WAS ON 40% THEN 50%, THEN BACK TO 60%, PT DID DE SAT AT TIMES, CURRENTLY ON 60%, SAT 95-96%. Thelma CALDERONP Addendum: 08/12/22 at 0406 by ATILIO GRIER RT Amended: Links added.
[2022-08-12 05:08] LABS: HEMATOCRIT 36.1 % (31.2-41.9); MEAN CORPUSCULAR HEMOGLOBIN 34.4 uug (24.7-32.8); MEAN CORPUSCULAR VOLUME 102.6 fL (75.5-95.3); PLATELET COUNT (AUTO) 242 K/uL (179-408)
[2022-08-12 05:35] LABS: CARBON DIOXIDE 33 mmol/L (21-32); CHLORIDE 98 mmol/L (98-107); CREATININE 3.4 mg/dL (0.6-1.3); GLUCOSE 84 mg/dL (74-106); MAGNESIUM 2.1 mg/dL (1.8-2.4); PHOSPHOROUS 4.1 mg/dL (2.5-4.9); UREA NITROGEN, BLOOD 18 mg/dL (7-18)
[2022-08-12 05:37] LABS: THYROID STIMULATING HORMONE 23.047 mIU/mL (0.358-3.740)
[2022-08-12] MEDS: PANTOPRAZOLE SODIUM 40 MG TABLET.DR PO SCH (07:00)
--- NOTE | 2022-08-12 07:00 | NUR ---
Received pt. on BIPAP / Rate of 20 and 60% FIO2 Patient AAOx4. Hemodynamically stable but with c/of SOB even on BIPAP IV access patent. Patient anuric incontinent diaper. Skin with sacrum with a small abrasion covered with mepilex and pt. on repositioning Q12.
--- NOTE | 2022-08-12 07:50 | NUR ---
Attending Darian Vasquez in the unit to follow up on pt. report given orders to continue with care plan receive and implemented.
--- NOTE | 2022-08-12 08:20 | NUR ---
Pulmonary services Dr. Ceja in the unit to examine pt. Addendum: 08/12/22 at 0858 by JOI SALAZAR RN Dr. Davidson
[2022-08-12] MEDS ORDERED: LEVOTHYROXINE SODIUM 100 MCG VIAL IV ONE ×2 (08:30→09:24)
[2022-08-12] MEDS ORDERED: HEPARIN SODIUM,PORCINE 5,000 UNITS/ML VIAL ONE ×2 (09:24→19:58)
[2022-08-12] MEDS: HEPARIN SODIUM,PORCINE 5,000 UNITS/ML VIAL SQ SCH ×2 (09:26→20:46)
--- NOTE | 2022-08-12 09:32 | NUR ---
For the 2nd time patient with c/of SOB slightly tachypneic RR upper 20's. saturation 92%. Patient back on setting that pickle sorter input while at bedside.
--- NOTE | 2022-08-12 09:43 | NUR ---
0745 PT RECEIVED ON BIPAP WITH SETTINGS OF 16/6/RATE OF 20, 60% FIO2. PT COMFORTABLE SHOWING NO SIGNS OF RESPIRATORY DISTRESS. 0900 BIPAP REMOVED FOR RELIEF AND OBSERVATION. PT PLACED ON SIMPLE O2 MASK AT 10 LPM. 0930 PT COMPLAINED OF SOB. PT PLACED BACK ON BIPAP WITH SETTINGS OF 16/6 RATE OF 12 AT 50% FIO2. BIPAP CHANGES MADE BY ASSIGNED BOTTOM TURNING LATHE TURNER. PT COMFORTABLE ON BIPAP WITH NO SIGNS OF RESPIRATORY DISTRESS. WILL CONTINUE TO MONITOR
--- NOTE | 2022-08-12 10:40 | NUR ---
FIO2 down to 40% at this time.
--- NOTE | 2022-08-12 12:00 | NUR ---
Speech therapy in BIPAP off during test saturation drop to 83% patient with c/of tiredness and labor breathing. Pass swallow evaluation and placed back on bipap. saturation gradually improved to 92%.
[2022-08-12] MEDS ORDERED: MIRALAX 17 GM POWD.PACK PO PRN (16:45)
[2022-08-12] MEDS ORDERED: CARVEDILOL 25 MG TABLET PO SCH (17:00)
--- NOTE | 2022-08-12 18:05 | NUR ---
FIO2 down to 35%.
--- NOTE | 2022-08-12 22:30 | NUR ---
G-daughter Adelaida [phone] in; said, pt was hungry. Contacted Dr Frias. Fed a sandwich & some juice, pt said she full; while on N/C 8L. Now, on 10L simple mask.
--- NOTE | 2022-08-12 22:57 | NUR ---
PATIENT OFF BI/PAP TO EAT, DOING WELL, PT ON O2 6L/M NC, SAT 97%, VERY HUNGRY, MONITORED BY NURSE, MAINTAINING GOOD OXYGENATION Addendum: 08/12/22 at 2257 by ATILIO GRIER RT Amended: Links added. Addendum: 08/12/22 at 2258 by ATILIO GRIER RT PT TAKEN OFF BI/PAP AT 22:45 .Thelma GRIER RCP
--- NOTE | 2022-08-12 23:39 | NUR ---
23:25 - PATIENT PLACED ON O2 8L/M VIA SIMPLE MASK , SAT 96%, WILL MONITOR CLOSELY, S/B BI/PAP .Thelma GRIER RCP Addendum: 08/12/22 at 2341 by ATILIO GRIER RT Amended: Links added.
[2022-08-13] VITALS (26 sets, daily range): BP systolic 110–159; BP diastolic 47–76; TEMP 98.1–98.9; O2SAT 88–98
[2022-08-13] MEDS ORDERED: PANTOPRAZOLE SODIUM 40 MG TABLET.DR PO ONE (02:11)
[2022-08-13 05:36] LABS: HEMATOCRIT 31.4 % (31.2-41.9); MEAN CORPUSCULAR HEMOGLOBIN 34.8 uug (24.7-32.8); MEAN CORPUSCULAR VOLUME 103.6 fL (75.5-95.3); PLATELET COUNT (AUTO) 216 K/uL (179-408)
[2022-08-13 05:59] LABS: CARBON DIOXIDE 30 mmol/L (21-32); CHLORIDE 99 mmol/L (98-107); CREATININE 4.4 mg/dL (0.6-1.3); GLUCOSE 88 mg/dL (74-106); PHOSPHOROUS 4.6 mg/dL (2.5-4.9); UREA NITROGEN, BLOOD 28 mg/dL (7-18)
[2022-08-13] MEDS: PANTOPRAZOLE SODIUM 40 MG TABLET.DR PO SCH (06:39)
[2022-08-13] MEDS: LEVOTHYROXINE SODIUM 150 MCG TABLET PO SCH (07:47)
[2022-08-13] MEDS ORDERED: ASPIRIN 81 MG TAB.CHEW ONE (07:52)
[2022-08-13] MEDS ORDERED: ESCITALOPRAM OXALATE 10 MG TABLET ONE (07:52)
[2022-08-13] MEDS: APIXABAN 5 MG TABLET PO SCH ×2 (08:19→20:48)
[2022-08-13] MEDS: FOLIC ACID/VITAMIN B COMP W-C TABLET PO SCH (08:20)
[2022-08-13] MEDS: ESCITALOPRAM OXALATE 10 MG TABLET PO SCH (08:20)
[2022-08-13] MEDS: ASPIRIN 81 MG TAB.CHEW PO SCH (08:21)
--- NOTE | 2022-08-13 08:23 | NUR ---
0730 received report on Pt. Lying in bed sleeping, VSS, ECG NSR, easily awakes to voice, oriented x4 and follows commands. on 35% BIPAP. se full asesment.
--- NOTE | 2022-08-13 08:28 | NUR ---
Pt seen and examined by Dr. Davidson. pt c/o subjective feeling of "not getting enough air" RR in 20's spO2 98 %, skin warm and dry. Trial off of BIPAP, provided emotional support. CXR ordered.
--- NOTE | 2022-08-13 10:00 | NUR ---
VSS remains off BIPAP with adequete saturation. PT evaluation.
--- NOTE | 2022-08-13 12:30 | NUR ---
Pt tolerating 5LNC with adequete saturations, assisted to eat lunch ate 30% of meal.
--- NOTE | 2022-08-13 13:50 | NUR ---
pt drowsy, awakes esily to voice and oriented. Skin W&D, respirations shallow unlabored, drop in saturation 86-88%. Placed back on simple mask 5 l saturation remians low. Placed on BIPAP 35% 16/6 rate 12, saturation iimmediately ncreaased to 88-91%.
--- NOTE | 2022-08-13 17:00 | NUR ---
Sleeping easily awoken, offered dinner, Pt refused at this time. Repositioned.
--- NOTE | 2022-08-13 17:46 | NUR ---
1430 Respirations even and unabored, on BIPAP saturating 95-96%
--- NOTE | 2022-08-13 18:28 | NUR ---
VSS tolerating Hemodyalysis. Placed on 5lNC to eat dinner. Ate 100% of turkey sandwich and drank apple juice.
--- NOTE | 2022-08-13 19:33 | NUR ---
Patient remains hemodynamically stable, HR NSR rate in the 60's. undergoing HD. 98.8 axillary. Patient on NC 6L saturation of 92% -95%. IV line patent.
--- NOTE | 2022-08-13 19:46 | NUR ---
HD procedure done at this time a total of 1600 cc's out reported. Patient tolerated well.
[2022-08-13] MEDS ORDERED: hydrOXYzine HCL 25 MG TABLET PO PRN (20:15)
--- NOTE | 2022-08-13 20:25 | NUR ---
Patient saturation down to 78-80% pt. with c/of severe SOB gasping cyanosis noted, RT Daair at bedside and pt. placed back on BIPAP back up rate of 12, FI2 35%. Patient received a load dose of 10%. hemodynamically pt. remained stable. Addendum: 08/13/22 at 2042 by JOI SALAZAR RN Patient noted to be restless and slightly agitated. attending notified and orders received.
[2022-08-13] MEDS ORDERED: hydrOXYzine HCL 25 MG TABLET ONE (20:45)
--- NOTE | 2022-08-13 21:21 | NUR ---
PATIENT ON 6L/M NC , @ 19:30 WITH DIALYSIS ON PT, AFTER PROCEDURE DONE, PT BECOMING SLIGHTLY SOB, CALLED BY NURSING, TO BE PLACED BACK ON BI/PAP @ 20:25, WITH SAME CURRENT SETTINGS, 11/08, R12, FIO2 @ 35% , SAT 96-97%, WILL MONITOR CLOSELY , Ward GRIER HAY RAKE OPERATOR Addendum: 08/13/22 at 2124 by ATILIO GRIER RT Amended: Links added.
[2022-08-14] VITALS (22 sets, daily range): BP systolic 103–170; BP diastolic 40–76; TEMP 98–98.6; O2SAT 95–99
[2022-08-14] MEDS ORDERED: PANTOPRAZOLE SODIUM 40 MG TABLET.DR PO ONE ×2 (06:15→06:16)
[2022-08-14] MEDS: PANTOPRAZOLE SODIUM 40 MG TABLET.DR PO SCH (06:17)
[2022-08-14] MEDS: LEVOTHYROXINE SODIUM 150 MCG TABLET PO SCH (06:17)
[2022-08-14] MEDS ORDERED: hydrALAZINE HCL 20 MG/1 ML VIAL ONE (07:44)
[2022-08-14] MEDS ORDERED: hydrALAZINE HCL 20 MG/1 ML VIAL IV ONE (07:45)
[2022-08-14 08:03] LABS: CARBON DIOXIDE 36 mmol/L (21-32); CHLORIDE 101 mmol/L (98-107); CREATININE 3.4 mg/dL (0.6-1.3); GLUCOSE 102 mg/dL (74-106); PHOSPHOROUS 3.3 mg/dL (2.5-4.9); POTASSIUM 3.5 mmol/L (3.5-5.1); UREA NITROGEN, BLOOD 19 mg/dL (7-18)
[2022-08-14] MEDS ORDERED: ESCITALOPRAM OXALATE 10 MG TABLET ONE (08:19)
[2022-08-14] MEDS ORDERED: ASPIRIN EC 81 MG TABLET.DR PO ONE (08:19)
[2022-08-14 08:38] LABS: MEAN CORPUSCULAR HEMOGLOBIN 34.1 uug (24.7-32.8); MEAN CORPUSCULAR VOLUME 103.1 fL (75.5-95.3); PLATELET COUNT (AUTO) 233 K/uL (179-408)
[2022-08-14] MEDS: ESCITALOPRAM OXALATE 10 MG TABLET PO SCH (08:47)
[2022-08-14] MEDS: FOLIC ACID/VITAMIN B COMP W-C TABLET PO SCH (08:48)
[2022-08-14] MEDS: APIXABAN 5 MG TABLET PO SCH ×2 (08:50→21:11)
[2022-08-14] MEDS ORDERED: ASPIRIN 81 MG TAB.CHEW ONE (08:51)
[2022-08-14] MEDS: ASPIRIN 81 MG TAB.CHEW PO SCH (08:52)
--- NOTE | 2022-08-14 08:55 | NUR ---
Thelma Otero Np in the unit to evaluate pt.
--- NOTE | 2022-08-14 09:05 | NUR ---
Dr Sharpe at the bedside for eval.
[2022-08-14] MEDS: LIOTHYRONINE SODIUM 5 MCG TABLET PO SCH (09:09)
--- NOTE | 2022-08-14 09:21 | NUR ---
Took Pt off BiPAP for 20 min and placed her on O2 via N/C @ 4L, observed after 20 min Pt's o2 dropped to 86% and pt cc being short of breath. Placed pt back on BIPAP, O2 elias improved to 96%.
[2022-08-14] MEDS ORDERED: CARVEDILOL 25 MG TABLET ONE ×2 (09:39→17:57)
[2022-08-14] MEDS ORDERED: AMLODIPINE 5 MG TABLET ONE (09:39)
[2022-08-14 09:44] LABS: EOSINOPHILS % (MANUAL) 3 % (0-8); LYMPHOCYTES % (MANUAL) 33 % (20-40); MONOCYTES % (MANUAL) 14 % (2-10); NEUTROPHILS % (MANUAL) 50 % (42-75)
[2022-08-14] MEDS: AMLODIPINE 5 MG TABLET PO SCH (09:44)
[2022-08-14] MEDS: CARVEDILOL 25 MG TABLET PO SCH ×2 (09:45→18:03)
[2022-08-14] MEDS ORDERED: ACETAMINOPHEN 325 MG TABLET ONE (13:20)
--- NOTE | 2022-08-14 13:35 | NUR ---
Pt c/o lower back pain, reposition for comfort, not helping. Pt requested to have pain medications. Acetaminophen 650 PO given.
[2022-08-14] MEDS: ACETAMINOPHEN 325 MG TABLET PO PRN (13:38)
--- NOTE | 2022-08-14 14:33 | NUR ---
Pt is resting comfortably in bed, Acetaminophen effective, NAD at this time.
--- NOTE | 2022-08-14 19:15 | NUR ---
Pt is noted in bed sleeping but responsive as report is received from the off going nurse. Sinus Rhythm on the Tele monitor , Diminished Lungs sound with BiPAP therapy at 16/6, 12 and FI02 35% and skin dry, warm but skin areas noted, please see skin assessment in chart , also Right Upper Arm Permcath noted for Hemodialysis. Pt care continue as she due for Hemodialysis in AM and will be monitor closely all during the shift while assist as needed .
--- NOTE | 2022-08-14 23:46 | NUR ---
Pt is noted awaken with no S/S off distress as she remain full code with BiPAP therapy in progress while turn and reposition Q2HRS for comfort. Pt care continue.
[2022-08-15] VITALS (27 sets, daily range): BP systolic 102–160; BP diastolic 33–93; TEMP 98–98.5; O2SAT 94–100
[2022-08-15] MEDS ORDERED: ACETAMINOPHEN 325 MG TABLET ONE (00:38)
[2022-08-15] MEDS: ACETAMINOPHEN 325 MG TABLET PO PRN (00:41)
--- NOTE | 2022-08-15 00:50 | NUR ---
Pt received 650mg PO off Tylenol for generalizer pain. Pt care continue as she will be reassessed for effectiveness while monitor closely.
[2022-08-15 03:06] LABS: HEPATITIS B SURFACE AG Negative (Negative)
[2022-08-15 04:56] LABS: HEMATOCRIT 30.7 % (31.2-41.9); MEAN CORPUSCULAR HEMOGLOBIN 34.8 uug (24.7-32.8); MEAN CORPUSCULAR VOLUME 103.1 fL (75.5-95.3); PLATELET COUNT (AUTO) 197 K/uL (179-408)
[2022-08-15 05:08] LABS: CARBON DIOXIDE 33 mmol/L (21-32); CHLORIDE 102 mmol/L (98-107); CREATININE 4.6 mg/dL (0.6-1.3); GLUCOSE 89 mg/dL (74-106); PHOSPHOROUS 3.9 mg/dL (2.5-4.9); POTASSIUM 3.8 mmol/L (3.5-5.1); UREA NITROGEN, BLOOD 29 mg/dL (7-18)
--- NOTE | 2022-08-15 05:25 | NUR ---
Pt is sleeping after AM care and wound done with BiPAP therapy in progress. Pt care continue as she is been monitor.
[2022-08-15] MEDS ORDERED: PANTOPRAZOLE SODIUM 40 MG TABLET.DR PO ONE (06:25)
[2022-08-15] MEDS: LIOTHYRONINE SODIUM 5 MCG TABLET PO SCH (06:26)
[2022-08-15] MEDS: PANTOPRAZOLE SODIUM 40 MG TABLET.DR PO SCH (06:26)
[2022-08-15] MEDS: LEVOTHYROXINE SODIUM 150 MCG TABLET PO SCH (06:26)
--- NOTE | 2022-08-15 07:30 | NUR ---
Pt care continue as report is given to the AM receiving RN.
--- NOTE | 2022-08-15 08:00 | NUR ---
Cardiology services Dr. Benson in to follow up on Pt.report given. Patient clear to be downgrade to RENE as stated by
[2022-08-15] MEDS ORDERED: ASPIRIN 81 MG TAB.CHEW ONE (08:29)
[2022-08-15] MEDS ORDERED: ESCITALOPRAM OXALATE 10 MG TABLET ONE (08:29)
[2022-08-15] MEDS ORDERED: CARVEDILOL 25 MG TABLET ONE (08:30)
[2022-08-15] MEDS ORDERED: AMLODIPINE 5 MG TABLET ONE (08:34)
[2022-08-15] MEDS: AMLODIPINE 5 MG TABLET PO SCH (08:37)
[2022-08-15] MEDS: ESCITALOPRAM OXALATE 10 MG TABLET PO SCH (08:38)
[2022-08-15] MEDS: ASPIRIN 81 MG TAB.CHEW PO SCH (08:38)
[2022-08-15] MEDS: CARVEDILOL 25 MG TABLET PO SCH ×2 (08:38→19:00)
[2022-08-15] MEDS: FOLIC ACID/VITAMIN B COMP W-C TABLET PO SCH (08:38)
[2022-08-15] MEDS: APIXABAN 5 MG TABLET PO SCH (08:39)
--- NOTE | 2022-08-15 09:10 | NUR ---
SBP above 160's just medicated with antihypertensives, pt. with c/of 10/10 back pain. Attending notified. orders received.
[2022-08-15] MEDS ORDERED: MORPHINE SULFATE 2 MG/1 ML DISP.SYRIN ONE ×2 (09:22→16:39)
[2022-08-15] MEDS: MORPHINE SULFATE 2 MG/1 ML DISP.SYRIN IM PRN ×2 (09:24→16:40)
[2022-08-15 10:18] LABS: BILIRUBIN,DIRECT 0.1 mg/dL (0.0-0.2); BILIRUBIN,TOTAL 0.3 mg/dL (0.2-1.0)
--- NOTE | 2022-08-15 10:30 | NUR ---
Pulmonary services, Dr. Willams in the unit to examine pt. report given orders to continue monitor and run an ABG at 1600 Received.
--- NOTE | 2022-08-15 17:34 | NUR ---
Patient seen by Dr. Chakraborty.
[2022-08-15 17:43] LABS: ABG BASE EXCESS 8.5 mmol/L; ABG HCO3 32.8 mmol/L; ABG PCO2 43.8 mmHg (35.0-45.0); ABG PH 7.492 (7.350-7.450); ABG PO2 95.8 mmHg (75.0-100.0); ABG SITE LEFT RADIAL; ABG TOTAL HEMOGLOBIN 12.2 G/dL (12.0-16.0); COHb 0.6 % (0.5-1.5); MetHb 0.1 % (0.0-1.5); O2Hb 96.8 % (94.0-97.0); VENT MODE Nasal Cannula
[2022-08-15] MEDS: APIXABAN 2.5 MG TABLET PO SCH (20:14)
[2022-08-15] MEDS ORDERED: AMIODARONE HCL IV 450 MG in IV DEXTROSE 5% 250 ML IV PRN (22:45)
[2022-08-15] MEDS ORDERED: AMIODARONE HCL IV 150 MG in IV DEXTROSE 5% 100 ML IV ONE (22:45)
[2022-08-16] VITALS (20 sets, daily range): BP systolic 105–178; BP diastolic 44–77; TEMP 97.7–99.3; O2SAT 93–99
[2022-08-16 05:08] LABS: HEMATOCRIT 37.1 % (31.2-41.9); MEAN CORPUSCULAR HEMOGLOBIN 34.9 uug (24.7-32.8); PLATELET COUNT (AUTO) 229 K/uL (179-408)
[2022-08-16 05:24] LABS: CARBON DIOXIDE 36 mmol/L (21-32); CHLORIDE 100 mmol/L (98-107); CREATININE 2.8 mg/dL (0.6-1.3); GLUCOSE 89 mg/dL (74-106); PHOSPHOROUS 4.1 mg/dL (2.5-4.9); POTASSIUM 3.7 mmol/L (3.5-5.1); UREA NITROGEN, BLOOD 11 mg/dL (7-18)
[2022-08-16] MEDS ORDERED: hydrALAZINE HCL 20 MG/1 ML VIAL IV ONE (05:45)
[2022-08-16] MEDS: LIOTHYRONINE SODIUM 5 MCG TABLET PO SCH (06:44)
[2022-08-16] MEDS: LEVOTHYROXINE SODIUM 150 MCG TABLET PO SCH (06:44)
[2022-08-16] MEDS: PANTOPRAZOLE SODIUM 40 MG TABLET.DR PO SCH (06:46)
--- NOTE | 2022-08-16 07:20 | NUR ---
Received report from Gerard HILL. Pt sleeping, easily awoken to voice, VSS see full assessment
[2022-08-16] MEDS: CARVEDILOL 25 MG TABLET PO SCH ×2 (07:42→17:21)
[2022-08-16] MEDS: APIXABAN 2.5 MG TABLET PO SCH (08:04)
[2022-08-16] MEDS: ESCITALOPRAM OXALATE 10 MG TABLET PO SCH (08:04)
[2022-08-16] MEDS: FOLIC ACID/VITAMIN B COMP W-C TABLET PO SCH (08:04)
[2022-08-16] MEDS: ASPIRIN EC 81 MG TABLET.DR PO SCH (08:04)
[2022-08-16] MEDS: AMLODIPINE 5 MG TABLET PO SCH (08:05)
--- NOTE | 2022-08-16 08:30 | NUR ---
Pt seen by Dr Jarvis
--- NOTE | 2022-08-16 10:04 | NUR ---
patient downgraded during hospital meeting to TELE. Called Tele unit to obtain a bed assignement. patient will be going to room 305 receiving nurse will be Marsha HILL.
--- NOTE | 2022-08-16 10:15 | NUR ---
Pt seen and examined by locomotive supervisor, consult for sacral area.
--- NOTE | 2022-08-16 10:30 | NUR ---
PT at bedside.
--- NOTE | 2022-08-16 10:54 | NUR ---
WOUND CARE CONSULT: PT PRESENTS WITH SACRAL DEEP TISSUE INJURY IN EVOLUTION WHICH WAS NOTED TO BE PRESENT ON ADMISSION. RECOMMENDATIONS MADE FOR SKIN PROTECTION AND WOUND CARE. DISCUSSED WITH NURSING STAFF. SURGICAL CONSULT CALLED TO DR KOHANZADEH. BOTELLO IN AGREEMENT WITH PLAN OF CARE. Addendum: 08/16/22 at 1055 by SHONNA JIN RN Amended: Links added. Addendum: 08/16/22 at 1116 by SHONNA JIN RN FIRST STEP LOW AIRLOSS MATTRESS WAS ORDERED. IN AGREEMENT WITH PLAN OF CARE.
[2022-08-16] MEDS: MEDIHONEY= THERAHONEY 1.5 OZ TUBE TOP SCH (15:12)
--- NOTE | 2022-08-16 19:15 | NUR ---
Pt is noted in bed alert, responsive as report is received from the off going nurse. Sinus Rhythm on the Tele monitor , Diminished Lungs sound with 02 3Liters Nasal Cannula and skin dry, warm but skin areas noted, please see skin assessment in chart , also Right Upper Arm PermCath noted for Hemodialysis. Pt care continue as she is Tele Status and will be going to Room 305 sometime during the shift and will be monitor closely while awaits transferred.
--- NOTE | 2022-08-16 20:25 | NUR ---
Pt care continue as report is given to the 3rd Floor RN PUJA as pt is going to Room 305.
--- NOTE | 2022-08-16 20:35 | NUR ---
Pt is noted off the unit to Room 305 . Pt care continue.
[2022-08-16] MEDS: APIXABAN 5 MG TABLET PO SCH (21:30)
--- NOTE | 2022-08-16 21:52 | NUR ---
20:30 RT ASSIST TRANSPORT PT TO 305, PT ON O2 @ 3L/M NC , S/B BI/ANIKET GRIER/ THEO JAMMER OPERATOR Addendum: 08/16/22 at 2154 by ATILIO GRIER RT Amended: Links added.
[2022-08-17] VITALS: BP 138/50; TEMP 98; O2SAT 98
--- NOTE | 2022-08-17 00:06 | NUR ---
Received report from Migdalia HILL CCU. pt is alert oriented x 3, Citizen [place] speaker, but can verbalize in Georgian too, bed bound, incontinent, with sacral wound, on 3 L via NC, admitted for DX hypoxia. HX ESRD HD m--, upon admission find out IV is off, ordered midline. Call light within reach, bed in low position, vital signs within normal level. all needs are attended and met in this time.
[2022-08-17 00:20] VITALS: O2SAT 99
[2022-08-17 04:00] VITALS: BP 137/58; TEMP 97.8; O2SAT 98
[2022-08-17] MEDS: LIOTHYRONINE SODIUM 5 MCG TABLET PO SCH (05:44)
[2022-08-17] MEDS: PANTOPRAZOLE SODIUM 40 MG TABLET.DR PO SCH (05:45)
[2022-08-17] MEDS: LEVOTHYROXINE SODIUM 150 MCG TABLET PO SCH (05:45)
[2022-08-17 07:30] LABS: MEAN CORPUSCULAR HEMOGLOBIN 34.2 uug (24.7-32.8); MEAN CORPUSCULAR VOLUME 103.9 fL (75.5-95.3); PLATELET COUNT (AUTO) 241 K/uL (179-408)
--- NOTE | 2022-08-17 07:30 | NUR ---
NIGHT NURSE REPORT RECEIVED: 1) MENTAL STATE: AO x 3-4 - very pleasant lady. 2) BREATHING: Patient on 3 liters oxygen via nasal cannula - , sat in the high 90s. No sign of distress observed. 3) SAFETY: Bed in low position, bed alarm activated, floor free of clutter and call rogers within reach. 4) CIRCULATION: No signs of cyanosis observed. 5) MOBILITY: Patient on bed rest - needs assistance with all care. 6) BOWEL MOVEMENT: No Bowels since admission. 7) SKIN: Patient has sacral sore - dressing intact, clean and dry. 8) PLAN: Will continue to treat patient accordingly.
[2022-08-17 07:41] LABS: CARBON DIOXIDE 35 mmol/L (21-32); CHLORIDE 99 mmol/L (98-107); GLUCOSE 89 mg/dL (74-106); MAGNESIUM 1.9 mg/dL (1.8-2.4); PHOSPHOROUS 4.4 mg/dL (2.5-4.9); POTASSIUM 3.6 mmol/L (3.5-5.1); UREA NITROGEN, BLOOD 20 mg/dL (7-18)
[2022-08-17 08:46] LABS: ABG BASE EXCESS 2.1 mmol/L; ABG PCO2 43.2 mmHg (35.0-45.0); ABG PH 7.414 (7.350-7.450); ABG PO2 74.6 mmHg (75.0-100.0); ABG SITE RIGHT RADIAL; ABG TOTAL HEMOGLOBIN 12.9 G/dL (12.0-16.0); COHb 0.8 % (0.5-1.5); MetHb 0.1 % (0.0-1.5); O2Hb 94.1 % (94.0-97.0); VENT MODE Nasal Cannula
[2022-08-17] MEDS: FOLIC ACID/VITAMIN B COMP W-C TABLET PO SCH (08:47)
[2022-08-17] MEDS: AMLODIPINE 5 MG TABLET PO SCH (08:47)
[2022-08-17] MEDS: ASPIRIN EC 81 MG TABLET.DR PO SCH (08:47)
[2022-08-17] MEDS: ESCITALOPRAM OXALATE 10 MG TABLET PO SCH (08:48)
[2022-08-17] MEDS: CARVEDILOL 25 MG TABLET PO SCH ×2 (08:48→17:25)
[2022-08-17] MEDS: APIXABAN 5 MG TABLET PO SCH (08:54)
--- NOTE | 2022-08-17 09:45 | NUR ---
ASSISTED WITH BREAKFAST - ATE 75%.
[2022-08-17] MEDS: MEDIHONEY= THERAHONEY 1.5 OZ TUBE TOP SCH (10:09)
[2022-08-17 11:06] VITALS: BP 117/53; TEMP 98.4; O2SAT 98
--- NOTE | 2022-08-17 12:03 | NUR ---
PATIENT SEEN BY PHYSIO AND SAT AT THE EDGE OF THE BED.
--- NOTE | 2022-08-17 13:45 | NUR ---
ROUNDING - ASLEEP COMFORTABLY, NO SIGN OF DISTRESS, SOB, OR PAIN.
[2022-08-17] MEDS ORDERED: AMLO-212 PO (15:05)
[2022-08-17] MEDS ORDERED: MENT113O TP (15:05)
[2022-08-17] MEDS ORDERED: LIOT5TAB7 PO (15:05)
[2022-08-17] MEDS ORDERED: ALBU2.5V7 NEB (15:05)
[2022-08-17] MEDS ORDERED: APIX5TAB PO (15:05)
[2022-08-17] MEDS ORDERED: MENT113O TOP (15:05)
[2022-08-17] MEDS ORDERED: PANT40TA49 PO (15:05)
[2022-08-17] MEDS ORDERED: IPRA0.2S6 NEB (15:05)
[2022-08-17] MEDS ORDERED: ASPI-618 PO (15:05)
[2022-08-17] MEDS ORDERED: ACET325T53 PO (15:05)
[2022-08-17 15:17] VITALS: BP 115/56; TEMP 97.7; O2SAT 97
--- NOTE | 2022-08-17 16:18 | NUR ---
REPORT TO [facility] - Endorsed care to IMLO Montanez Addendum: 08/17/22 at 1620 by REGISTRY [facility] INPATIENT RN7 RN Patient has no iv access from start of shift.
[2022-08-17 17:25] VITALS: BP 109/78
--- NOTE | 2022-08-17 17:25 | NUR ---
DISCHARGE: 1) LEFT UNIT AT 17:25HRS - CLINICALLY STABLE 2) Midline removed, pressure applied, no further bleeding observed - dressing clean and dry. 3) Endorse care to transportation staff.
== END 2022-08-17 17:25 | DRG 291 ==
LOC: ER 14:56 → TRANSITION 23:25 → CCU 08-15 17:54 → TELE3 08-16 20:35 → MEDSURG3 08-17 10:55
PROVIDERS: ADMIT Nurse Practitioner Family; ATTEND Internal Medicine
PROC: 5A09457 Assistance with Respiratory Ventilation, 24-96 Consecutive Hours, Continuous Positive Airway Pressure (ICD-10-PCS; principal; 2022-08-11)
PROC: 5A1D70Z Performance of Urinary Filtration, Intermittent, Less than 6 Hours Per Day (ICD-10-PCS; 2022-08-11)
PROC: 05H533Z Insertion of Infusion Device into Right Subclavian Vein, Percutaneous Approach (ICD-10-PCS; 2022-08-17)
PROC: B546ZZA Ultrasonography of Right Subclavian Vein, Guidance (ICD-10-PCS; 2022-08-17)
DX: I13.2 Hypertensive heart and chronic kidney disease with heart failure and with stage 5 chronic kidney disease, or end stage renal disease (principal); E43 Unspecified severe protein-calorie malnutrition; I50.33 Acute on chronic diastolic (congestive) heart failure; J96.01 Acute respiratory failure with hypoxia; G92.8 Other toxic encephalopathy; N18.6 End stage renal disease; E87.1 Hypo-osmolality and hyponatremia; J90 Pleural effusion, not elsewhere classified; J98.11 Atelectasis; E03.9 Hypothyroidism, unspecified; E66.9 Obesity, unspecified; E78.5 Hyperlipidemia, unspecified; F32.A Depression, unspecified; I25.10 Atherosclerotic heart disease of native coronary artery without angina pectoris; I48.0 Paroxysmal atrial fibrillation; I95.1 Orthostatic hypotension; D75.89 Other specified diseases of blood and blood-forming organs; D63.1 Anemia in chronic kidney disease; K21.9 Gastro-esophageal reflux disease without esophagitis; Z79.01 Long term (current) use of anticoagulants; Z79.82 Long term (current) use of aspirin; Z86.73 Personal history of transient ischemic attack (TIA), and cerebral infarction without residual deficits; Z87.891 Personal history of nicotine dependence; Z99.2 Dependence on renal dialysis; J44.9 Chronic obstructive pulmonary disease, unspecified; R73.9 Hyperglycemia, unspecified; Z68.28 Body mass index [BMI] 28.0-28.9, adult; Z95.5 Presence of coronary angioplasty implant and graft; Z91.158 Patient's noncompliance with renal dialysis for other reason; N25.0 Renal osteodystrophy
CPT/HCPCS: 36415; 36600; 70030-TC; 71045; 82803; 83605; 83735; 84100; 84443; 84481; 84484; 85025; 85730; 86706; 87040; 87340; 90937; 93005; 94660; A4663; A6209; G0378; J0282; J0360; J1644; J2270; J7040